=== PATIENT | male | born 1940 | race Caucasian/White ===

== ENCOUNTER 2017-04-15 07:22 | Day surgery (SDC) | payer OTHER ==
[~2017-04-15] VITALS: Ht 180.3 cm; Wt 100.9 kg
[~2017-04-15 07:22] MED LIST: ASMA220A IN; ASPI325T PO; CLOP75 PO; HYDR-2768 PO; LISI-363 PO; PRAV20 PO; PROS5TAB2 PO; SPIRCAP INH; SUPETAB30 PO; TEST-25 TD; XOPEAER4 INH; [UNRECOGNIZED DRUG - CODE] PO
[2017-04-15 07:45] VITALS: BP 121/69; PULSE 73; RESP 20; TEMP 98.1; O2SAT 97
[2017-04-15] MEDS ORDERED: SYMB160A INH (07:56)
[2017-04-15] MEDS ORDERED: ATOR40TA16 PO (07:56)
[2017-04-15] MEDS ORDERED: ASPI81CH CHEW (07:56)
[2017-04-15] MEDS ORDERED: VANCOMYCIN 1000 MG/NS 250 ML - implanted port/tunneled catheter IV SCH ×2 (08:00)
[2017-04-15] MEDS ORDERED: POVIDONE IODINE 5% (ANTISEPSIS KIT) 4 APPLICATIONS EACH NARE SCH (08:00)
[2017-04-15] MEDS ORDERED: CHLORHEXIDINE GLUCONATE 2 % 1 PACK (2 CLOTHS) TOPICAL SCH (08:00)
[2017-04-15] MEDS ORDERED: SODIUM CHLORIDE 0.9% 1000 ML IV SCH (08:00)
[2017-04-15] MEDS ORDERED: TERA2CAP3 PO (08:21)
[2017-04-15] MEDS ORDERED: FINA5TAB2 PO (08:21)
[2017-04-15] MEDS ORDERED: ALPR.5 PO (08:21)
[2017-04-15] MEDS ORDERED: SPIRCAP INH (08:21)
[2017-04-15] MEDS ORDERED: IPRAAER INH (08:21)
[2017-04-15] MEDS ORDERED: FLEE5TAB PO (08:21)
[2017-04-15] MEDS ORDERED: METO50TA PO (08:21)
[2017-04-15] MEDS ORDERED: FLUT50SP EACH NARE (08:21)
[2017-04-15] MEDS ORDERED: HYDR-755 PO (08:21)
[2017-04-15] MEDS ORDERED: LISI-515 PO (08:21)
[2017-04-15] MEDS ORDERED: HYDR-3534 PO (08:21)
[2017-04-15] MEDS ORDERED: MUCI30TA2 PO (08:21)
[2017-04-15] MEDS ORDERED: VENTAER INH (08:21)
[2017-04-15] MEDS ORDERED: CO Q100C9 (08:21)
[2017-04-15] MEDS ORDERED: HYDR25TA5 PO (08:21)
[2017-04-15] MEDS ORDERED: fentaNYL CITRATE 250 MCG/5 ML AMP ONE (09:30)
[2017-04-15] MEDS ORDERED: MIDAZOLAM HCL 5 MG/5 ML VIAL ONE (09:30)
[2017-04-15] MEDS ORDERED: LIDOCAINE 1%/EPINEPHrine 1:100,000 SOLN 20 ML VIAL ONE (10:01)
[2017-04-15 10:30] VITALS: BP 134/71; PULSE 77; RESP 18; TEMP 97.7; O2SAT 96
[2017-04-15 10:45] VITALS: BP 128/70; PULSE 67; RESP 16; O2SAT 97
--- NOTE | 2017-04-15 10:59 | PD.RAD ---
Post Procedure Progress Note Pre Procedure Diagnosis: (1) Cancer Post Procedure Diagnosis: (1) Cancer Procedure Date: Apr 15, 2017 Supervising Radiologist: Todd Dave Proceduralist/Assist: Rito Lane, RT(R), Jeana Colmenares RT(R)() Anesthesia: Conscious Sedation Plan of Activity Patient to Unit: ROPU Patient Condition: Good See PACS Report for procedural detail/treatment Central Venous Access Device Procedure 1 Right Internal Jugular Infusaport Placement single lumen Todd Dave MD Apr 15, 2017 10:59
[2017-04-15 11:00] VITALS: BP 147/81; PULSE 71; RESP 18; O2SAT 97
[2017-04-15] MEDS ORDERED: SODIUM CHLORIDE 0.9% FLUSH 10 ML FLUSH IVF PRN (11:00)
--- NOTE | 2017-04-15 11:03 | RADRPT ---
EXAM DATE/TIME: 04/15/2017 10:07 [facility] COMPARISON: No previous studies available for comparison. INDICATIONS : Patient is in need of placement of a right Infusaport for chemotherapy treatment of head and neck can cer. MEDICAL HISTORY : History of salivary duct cancer, facial and neck mass, lung cancer, HTN, COPD. MS. SURGICAL HISTORY : History of radical neck dissection, lobectomy, penile implant. ENCOUNTER: Initial ACUITY: 2 months PAIN SCORE: 8/10 LOCATION: head FLUORO TIME: 0.3 minutes IMAGE SERIES: 1 SEDATION TIME: 30 minutes ACCESS: Right internal jugular vein SEDATION: 1.) 4 mg midazolam (Versed) IV 2.) 200 mcg fentanyl (Sublimaze) IV Prophylactic antibiotics were administered with appropriate pre-procedure timing. Vancomycin within 2 hours of procedure, Ancef (or alternative) within 1 hour of procedure. 1. 8 [place] [id number] Smart Port PROCEDURE : 1. Continuous pulse oximetry and EKG monitoring. 2. Intravenous conscious sedation. 3. Ultrasound guidance for venous access. 4. Fluoroscopic guided implantable central venous port placement. The patient was placed supine. The neck was prepped in sterile fashion. Full sterile technique was u sed, including cap, mask, sterile gloves and gown, and a large sterile sheet. Hand hygiene and 2% ch lorhexidine Betadine was utilized per protocol for cutaneous antisepsis with appropriate dry time for site. The skin and subcutaneous tissues were infiltrated with local anesthetic solution. Under direct ultrasound guidance, central venous access was accomplished in the targeted vessel. The ultrasound images depicting access guidance were stored and saved to PACS for permanent record. A s ubcutaneous pocket was created using blunt dissection. The port was introduced to the pocket. The c atheter tubing was fed through a subcutaneous tunnel to the venotomy site. The catheter tubing was c ut to a suitable length and then was introduced through a valved Peel-Away sheath and positioned with catheter tubing tip at the cavo-atrial junction level. The pocket incision was closed with subcutic ular Vicryl suture. Steri-Strips were applied. The port was flushed and locked with heparin solutio n per protocol. Sterile dressing was applied to the site. The patient tolerated the procedure well. Conscious sedation was performed with the prescribed dosages and duration as above in the presence of an independent trained radiology nurse to assist in the monitoring of the patient. EKG and oximetry remained stable throughout the procedure. The patient tolerated the procedure well and there were no complications. The patient was sent to post anesthesia recovery in stable condition. CONCLUSION: Uncomplicated ultrasound and fluoroscopic guided implanted central venous port catheter placement as described in detail above. An 8 [place] Power port was placed. Todd Dave MD on April 15, 2017 at 11:01 Board Certified Radiologist. This report was verified electronically.
[2017-04-15 11:30] VITALS: BP 146/75; PULSE 66; RESP 20; O2SAT 98
[2017-04-15] MEDS ORDERED: ALPRAZolam 0.5 MG TAB PO ONE (11:30)
[2017-04-15 12:30] VITALS: BP 154/83; PULSE 88; RESP 20; O2SAT 98
== END 2017-04-15 12:35 | disposition home or self-care (01) ==
LOC: HROP 07:22 → HRIP 07:28 → HROP 12:35
PROVIDERS: ATTEND Internal Medicine
DX: C08.9 Malignant neoplasm of major salivary gland, unspecified (principal); J44.9 Chronic obstructive pulmonary disease, unspecified; I10 Essential (primary) hypertension; Z85.118 Personal history of other malignant neoplasm of bronchus and lung
CPT/HCPCS: 36561; 76937; 77001; 99152; 99153; C1788; J1642; J2250; J3010